=== PATIENT | male | born 1970 | race Caucasian/White ===

== ENCOUNTER → 2020-06-08 | Outpatient (CLI) | payer MEDICARE ==
[~2020-06-08] MED LIST: ASPIRIN EC81 MG PO; ATORVASTATIN CA40 MG PO; BRILINTA 90 MG90 MG PO; IMDUR ER TAB 3030 MG PO; ISOSORBIDE MONO60 MG PO; NITROGLYCERIN0.4 MG SL; PERCOCET 10-321 EACH PO; PRINIVIL5 MG PO; RANEXA500 MG PO; TOPROL XL25 MG PO
[2020-06-08 10:01] LABS: HEMOGLOBIN 15.3 gm/dl (14.0-17.5); RED BLOOD COUNT 4.93 M/UL (4.20-5.50); WHITE BLOOD COUNT 6.4 K/UL (4.5-11.0)
[2020-06-08 10:22] LABS: BUN/CREATININE RATIO 19 (0-10)
== END ==
LOC: CATH 09:16
PROVIDERS: Internal Medicine Interventional Cardiology
DX: I25.118 Atherosclerotic heart disease of native coronary artery with other forms of angina pectoris (principal); I10 Essential (primary) hypertension; E78.5 Hyperlipidemia, unspecified; I25.2 Old myocardial infarction; F17.290 Nicotine dependence, other tobacco product, uncomplicated; Z82.49 Family history of ischemic heart disease and other diseases of the circulatory system; Z95.5 Presence of coronary angioplasty implant and graft; Z79.82 Long term (current) use of aspirin; Z79.899 Other long term (current) drug therapy
CPT/HCPCS: 36415; 80048; 85025; 85610; 85730; 93005; 99152; 99153; C1769; C1894; J1644; J2250; J3010; Q9967